=== PATIENT | male | born 1980 ===

== ENCOUNTER 2021-05-18 07:46 | Day surgery (SDC) | payer OTHER ==
[~2021-05-18] VITALS: Ht 175.3 cm; Wt 77.2 kg
--- NOTE | 2021-05-18 09:22 | NUR ---
05/18/21 0922 [address] KAMARA DURING CASE.
== END 2021-05-18 10:43 | disposition home or self-care (01) ==
LOC: ORSCSDS 07:46
PROVIDERS: Surgery
PROC: BF031ZZ Plain Radiography of Gallbladder and Bile Ducts using Low Osmolar Contrast (ICD-10-PCS; principal; 2021-05-18 09:00)
PROC: 0FT44ZZ Resection of Gallbladder, Percutaneous Endoscopic Approach (ICD-10-PCS; principal; 2021-05-18 09:00)
DX: K80.20 Calculus of gallbladder without cholecystitis without obstruction (principal); F32.9 Major depressive disorder, single episode, unspecified; F17.210 Nicotine dependence, cigarettes, uncomplicated
CPT/HCPCS: 74300; 88304; C1726; C1729; J0690; J1100; J1885; J2405; J2704; J3010

== ENCOUNTER 2023-07-24 13:11 | Day surgery (SDC) | payer OTHER ==
[~2023-07-24] VITALS: Wt 88.6 kg
--- NOTE | 2023-07-24 14:02 | NUR ---
07/24/23 1402 Deneen Monae IN ROOM WITH PT. CALL LIGHT WITHIN REACH. BED IN LOWEST POSITION. NO QUESTIONS OR CONCERNS AT THIS TIME.
--- NOTE | 2023-07-24 15:41 | NUR ---
07/24/23 1541 Rea Bruce PT INTUBATED ON GURNEY AND MOVED TO OR BED. FACE PILLOW IN PLACE, GEL UNDER KNEES, ARMS SECURED ON PADDED ARM BOARD, KNEES FLEXED WITH PILLOW, GEL CHEST BOLSTERS. POSITION CHECKED BY SURGEON AND ANESTHESIOLGIST.
--- NOTE | 2023-07-24 16:51 | NUR ---
07/24/23 1651 Marla Gee C/O NAUSEA, ZOFRAN 4MG IV GIVEN ORDERED.
[2023-07-24 16:54] VITALS: BP 132/82
== END 2023-07-24 17:31 | disposition home or self-care (01) ==
LOC: ORSCSDS 13:11
PROVIDERS: Podiatrist Foot & Ankle Surgery
PROC: 0LQN0ZZ Repair Right Lower Leg Tendon, Open Approach (ICD-10-PCS; principal; 2023-07-24 14:30)
DX: M66.361 Spontaneous rupture of flexor tendons, right lower leg (principal); V00.138A Other skateboard accident, initial encounter
CPT/HCPCS: J0330; J0690; J1100; J1170; J1885; J2250; J2405; J2704; J2795; J3010; J7120